=== PATIENT | female | born 1955 | race Caucasian/White ===

== ENCOUNTER → 2019-12-12 | Outpatient (CLI) | payer OTHER ==
--- NOTE | 2019-12-15 10:23 | MM ---
Reason for exam: screening (asymptomatic). Last mammogram was performed 1 year and 3 months ago. History: Patient is postmenopausal and has history of breast cancer at age 49. Physical Findings: A clinical breast exam by your physician is recommended on an annual basis and results should be correlated with mammographic findings. MG 3D Screening Mammo W/Cad Bilateral CC and MLO view(s) were taken. Prior study comparison: September 04, 2018, mammogram. August 23, 2017, mammogram. August 10, 2016, mammogram. August 10, 2015, mammogram. There are scattered fibroglandular densities. Finding: There is an intermediate concern, suspicious 7 mm circumscribed oval mass located 4 cm from the nipple in the lower outer quadrant of the left breast consistent with possible mass on CC view. New finding since September 04, 2018, August 23, 2017, August 10, 2016, and August 10, 2015. ASSESSMENT: Incomplete: need additional imaging evaluation, BI-RAD 0 RECOMMENDATION: Ultrasound of the left breast. [facility] will attempt to contact patient to return for ultrasound.
[2019-12-16 07:49] LABS: Methylmalonic Acid 0.37 umol/L (<0.40)
== END | disposition home or self-care (01) ==
LOC: RADMAMWWP 13:36
PROVIDERS: ATTEND Family Medicine
DX: Z12.31 Encounter for screening mammogram for malignant neoplasm of breast (principal); E72.11 Homocystinuria
CPT/HCPCS: 36415; 77063; 77067; 82747; 83921

== ENCOUNTER → 2019-12-18 | Outpatient (CLI) | payer OTHER ==
--- NOTE | 2019-12-18 09:13 | USB ---
Reason for exam: additional evaluation requested from abnormal screening. History: Patient is postmenopausal and has history of breast cancer at age 49. Chemotherapy, 2006. Radiation therapy of the right breast, 2006. Lumpectomy of the right breast. Physical Findings: Nurse did not find any significant physical abnormalities on exam. US Breast Workup Limited LT Technologist: Karolina Mcarthur Left limited breast ultrasound including focal area of concern, retroareolar and axilla demonstrates a 0.7 x 0.4 x 0.3cm oval lesion at 5 o'clock. These results were verbally communicated with the patient and result sheet given to the patient on 12/18/19. ASSESSMENT: Suspicious, BI-RAD 4 RECOMMENDATION: Needle biopsy and ultrasound core biopsy of the left breast. Called Dr. Schultz's office with mammographic findings and has scheduled an appointment for the patient for 12/19/19 at 1:[address] Pete. Biopsy scheduled for 12/29/19 at 10:30. PRELIMINARY REPORT CALLED AND FAXED TO DR. PETE ON 12/18/19.
== END | disposition home or self-care (01) ==
LOC: RADUSWWP 07:31
PROVIDERS: ATTEND Family Medicine
DX: R92.8 Other abnormal and inconclusive findings on diagnostic imaging of breast (principal)

== ENCOUNTER → 2019-12-29 | Day surgery (SDC) | payer OTHER ==
[2019-12-29 10:10] VITALS: BP 185/101; PULSE 93; RESP 16; TEMP 97.4
--- NOTE | 2019-12-29 11:37 | USB ---
EXAMINATION TYPE: US discontinued breast bx LT DATE OF EXAM: 12/29/2019 COMPARISON: 12/18/2019 HISTORY: Abnormal ultrasound FINDINGS: Upon questioning and evaluation, patient has an elevated pressure of 140/100. Attempts to d iminish pressure in a quiet environment were unsuccessful. Patient will be rescheduled for biopsy whe n the blood pressure is under control. IMPRESSION: 1. Biopsy deferred at this time secondary to elevated blood pressure
== END ==
LOC: RADUSWWP 09:33
PROVIDERS: ATTEND Surgery
DX: R92.8 Other abnormal and inconclusive findings on diagnostic imaging of breast (principal); Z53.09 Procedure and treatment not carried out because of other contraindication; R03.0 Elevated blood-pressure reading, without diagnosis of hypertension

== ENCOUNTER → 2020-01-30 | Outpatient (CLI) | payer OTHER ==
[2020-01-30 16:32] LABS: Uric Acid 4.3 mg/dL (2.9-7.7)
== END | disposition home or self-care (01) ==
LOC: LABWHC1 07:21
PROVIDERS: ATTEND Family Medicine
DX: I10 Essential (primary) hypertension (principal)
CPT/HCPCS: 36415; 82533; 84550

== ENCOUNTER → 2020-02-04 | Outpatient (CLI) | payer OTHER | END | disposition home or self-care (01) | LOC: LABWHC1 07:08 | PROVIDERS: ATTEND Family Medicine | DX: I10 Essential (primary) hypertension (principal) | CPT/HCPCS: 36415 ==

== ENCOUNTER 2022-06-30 09:55 | Day surgery (SDC) | payer MEDICARE, BC ==
[~2022-06-30 09:55] MED LIST: LACTATED RINGERS 1,000 ML IV SCH; LIDOCAINE 1% (10MG/ML) FOR IV START INTRADERMA PRN
[2022-06-30] MEDS ORDERED: LACTATED RINGERS 1,000 ML IV ONE (11:15)
[2022-06-30 11:17] LABS: Glucose,Whole Blood 96 mg/dL (70-110)
[2022-06-30 11:23] VITALS: RESP 16; TEMP 98.2
[2022-06-30] MEDS ORDERED: PROPOFOL 10 MG/ML 20 ML VIAL IV ONE (12:23)
--- NOTE | 2022-06-30 12:39 | P.PCN ---
Date of Procedure: 06/30/22 Procedure(s) Performed: BRIEF HISTORY: Patient is a 67-year-old pleasant female scheduled for an elective colonoscopy as a part of screening for colon cancer. Her last colonoscopy was 10 years ago. PROCEDURE PERFORMED: Colonoscopy. PREOPERATIVE DIAGNOSIS: Screening for colon cancer. IV sedation per Anesthesia. PROCEDURE: After informed consent was obtained, the patient, was brought into the endoscopy unit. IV sedation was administered by Anesthesia under continuous monitoring. Digital rectal examination was normal. Initially the Olympus CF-160 flexible video pediatric colonoscope was then inserted in the rectum, gradually advanced into the cecum without any difficulty. Careful examination was performed as the scope was gradually being withdrawn. Ileocecal valve and the appendiceal orifice were visualized and appeared normal. Prep was excellent. Mucosa of the cecum, ascending colon, transverse colon, descending colon, sigmoid colon, and rectum appeared normal. Scattered sigmoid diverticulosis Retroflexion was performed in the rectum and no lesions were seen. The patient tolerated the procedure well. IMPRESSION: Normal-appearing colon from rectum to cecum no evidence of colorectal neoplasia . Scattered sigmoid diverticulosis RECOMMENDATIONS: Findings of this examination were discussed with the patient as well as a family.. She was advised to have a repeat screening colonoscopy in 10 years.
[2022-06-30 12:58] VITALS: BP 130/76; PULSE 73
== END 2022-06-30 13:37 | disposition home or self-care (01) ==
LOC: ORWHC2ENDO 09:55
PROVIDERS: ATTEND Internal Medicine Gastroenterology
DX: Z12.11 Encounter for screening for malignant neoplasm of colon (principal); K57.30 Diverticulosis of large intestine without perforation or abscess without bleeding; I10 Essential (primary) hypertension; I49.3 Ventricular premature depolarization; Z88.5 Allergy status to narcotic agent; Z79.899 Other long term (current) drug therapy
CPT/HCPCS: 45378